=== PATIENT | male | born 1975 | race African-American/Black ===

== ENCOUNTER 2017-09-19 09:21 | Emergency (ER) | payer SELFPAY ==
[2017-09-19 10:02] LABS: #Eosinphils 0.1 thou/uL (0.0-0.7); #Lymphocytes 1.4 thou/uL (1.20-3.40); #Monocytes 0.3 thou/uL (0.11-0.59); #Neutrophils 3.5 thou/uL (1.40-6.50); %Basophils 0.7 % (0.0-1.0); %Eosinophils 1.7 % (0.0-10.0); %Lymphocytes 25.7 % (21.0-51.0); %Monocytes 6.5 % (0.0-10.0); %Neutrophils 65.4 % (42.0-75.0); Mean Corpuscular HGB CONC 32.3 g/dL (32.0-36.0); Mean Corpuscular Hemoglobin 28.4 pg (27.0-31.0); Mean Corpuscular Volume 87.8 fl (80.0-94.0); Mean Platelet Volume 7.4 fL (7.4-10.4); Platelet Count 353 thou/uL (130-400); RBC Distribution Width 13.2 % (11.5-14.5); White Blood Cell (WBC) Count 5.3 thou/uL (4.8-10.8)
--- NOTE | 2017-09-19 10:17 | RAD ---
AP VIEW OF CHEST: Date: 09/19/17 INDICATION: Chest pain. FINDINGS: No consolidation is evident. No pleural effusion or pneumothorax is evident. Heart size is accentuate d with exam technique. No acute osseous abnormality is noted. IMPRESSION: No acute cardiopulmonary abnormality. POS: H
[2017-09-19 10:21] LABS: ALT (SGPT) 12 U/L (8-55); AST (SGOT) 11 U/L (5-34); Albumin 3.8 g/dL (3.5-5.0); Alkaline Phosphatase 63 U/L (40-150); Anion Gap 12 mmol/L (10-20); BUN (Urea Nitrogen) 6 mg/dL (8.9-20.6); Bilirubin, Total 0.3 mg/dL (0.2-1.2); CK (CPK) 186 U/L (30-200); Calc. Creatinine Clearance 0 mL/min (70-130); Calcium 9.3 mg/dL (7.8-10.44); Carbon Dioxide 22 mmol/L (22-29); Chloride 108 mmol/L (98-107); Estimated GFR-MDRD Greater than 90; Globulin 3.6 g/dL (2.4-3.5); Glucose 108 mg/dL (70-105); Protein, Total 7.4 g/dL (6.0-8.3); Sodium 138 mmol/L (136-145)
[2017-09-19 10:25] LABS: CKMB 1.2 ng/mL (0-6.6); Troponin I 0.015 ng/mL (< 0.028)
[2017-09-19] MEDS ORDERED: Metoprolol Tartrate 50 MG TAB ONE (13:06)
[2017-09-19 13:20] LABS: Troponin I Less than 0.010 ng/mL (< 0.028)
== END 2017-09-19 14:40 ==
LOC: ERS 09:21
DX: R07.9 Chest pain, unspecified (principal); E78.5 Hyperlipidemia, unspecified; J45.909 Unspecified asthma, uncomplicated; E11.9 Type 2 diabetes mellitus without complications; I11.0 Hypertensive heart disease with heart failure; I50.9 Heart failure, unspecified; F31.9 Bipolar disorder, unspecified; F41.9 Anxiety disorder, unspecified; F17.210 Nicotine dependence, cigarettes, uncomplicated
CPT/HCPCS: 36415; 71045; 80053; 82553; 83880; 84484; 85025; 93005

== ENCOUNTER 2024-03-04 14:57 | Emergency (ER) | payer SELFPAY ==
[2024-03-04 15:59] LABS: #Basophils Less than 0.03 10x3/uL (0.0-0.2); %Basophils 0.1 % (0.0-1.0); %Eosinophils 3.3 % (0.0-10.0); %Monocytes 6.1 % (0.0-10.0); %Neutrophils 56.4 % (42.0-75.0); Hematocrit 40.2 % (42.0-52.0); Hemoglobin 12.9 g/dL (14.0-18.0); Mean Corpuscular HGB CONC 32.1 g/dL (32.0-36.0); Mean Corpuscular Hemoglobin 25.9 pg (27.0-31.0); Mean Corpuscular Volume 80.7 fL (78.0-98.0); Mean Platelet Volume 9.7 fL (7.4-10.4); Platelet Count 408 10x3/uL (130-400); RBC Distribution Width 16.4 % (11.5-14.5); Red Blood Cell (RBC) Count 4.98 mill/uL (4.70-6.10)
== END 2024-03-04 16:06 ==
LOC: ERS 14:57
DX: Z00.00 Encounter for general adult medical examination without abnormal findings (principal); F20.9 Schizophrenia, unspecified; I11.0 Hypertensive heart disease with heart failure; I50.9 Heart failure, unspecified; E11.9 Type 2 diabetes mellitus without complications; F17.210 Nicotine dependence, cigarettes, uncomplicated
CPT/HCPCS: 85025; 99282

== ENCOUNTER 2024-03-08 23:17 | Emergency (ER) | payer SELFPAY ==
[~2024-03-08 23:17] MED LIST: Iopamidol-370 76% 500 ML MDV (1 ML CHARGE) ONE
[2024-03-09 00:03] LABS: #Basophils Less than 0.03 10x3/uL (0.0-0.2); %Basophils 0.1 % (0.0-1.0); %Eosinophils 1.9 % (0.0-10.0); %Lymphocytes 15.7 % (21.0-51.0); %Monocytes 4.6 % (0.0-10.0); %Neutrophils 77.4 % (42.0-75.0); Hematocrit 39.2 % (42.0-52.0); Hemoglobin 12.9 g/dL (14.0-18.0); Mean Corpuscular HGB CONC 32.9 g/dL (32.0-36.0); Mean Corpuscular Hemoglobin 26.5 pg (27.0-31.0); Mean Corpuscular Volume 80.5 fL (78.0-98.0); Mean Platelet Volume 9.9 fL (7.4-10.4); Platelet Count 397 10x3/uL (130-400); RBC Distribution Width 16.1 % (11.5-14.5); Red Blood Cell (RBC) Count 4.87 mill/uL (4.70-6.10)
[2024-03-09 00:24] LABS: Acetaminophen Less than 10 mcg/mL (10.0-30.0); Alcohol Less than 10.0 mg/dL (Less than 10); Lipase 91 U/L (8-78); Salicylate Less than 8.0 mg/dL (15.0-30.0)
[2024-03-09 00:30] LABS: Troponin I Less than 0.010 ng/mL (< 0.028)
[2024-03-09 02:35] LABS: ALT (SGPT) 18 U/L (8-55); AST (SGOT) 24 U/L (5-34); Albumin 3.1 g/dL (3.5-5.0); Alkaline Phosphatase 63 U/L (40-110); Anion Gap 18 mmol/L (10-20); BUN (Urea Nitrogen) 11 mg/dL (8.9-20.6); Bilirubin, Total 0.3 mg/dL (0.2-1.2); CK (CPK) 123 U/L (30-200); Calc. Creatinine Clearance 0 mL/min (70-130); Calcium 9.2 mg/dL (7.8-10.44); Carbon Dioxide 17 mmol/L (22-29); Chloride 108 mmol/L (98-107); Estimated GFR 79; Globulin 5.4 g/dL (2.4-3.5); Glucose 145 mg/dL (70-105); Potassium 5.4 mmol/L (3.5-5.1); Protein, Total 8.5 g/dL (6.0-8.3); Sodium 138 mmol/L (136-145)
[2024-03-09] MEDS ORDERED: Ibuprofen 800 MG TAB ONE (04:04)
== END 2024-03-09 03:48 ==
LOC: EEVIPCON 23:17 → ERS 23:17
DX: R41.82 Altered mental status, unspecified (principal); E87.5 Hyperkalemia; E27.9 Disorder of adrenal gland, unspecified; E11.9 Type 2 diabetes mellitus without complications; E78.5 Hyperlipidemia, unspecified; I11.0 Hypertensive heart disease with heart failure; I50.9 Heart failure, unspecified; F17.210 Nicotine dependence, cigarettes, uncomplicated
CPT/HCPCS: 36415; 70450; 71045; 74177; 80053; 80307; 82550; 83605; 83690; 83735; 83880; 84443; 84484; 85025; 93005; 94760; Q9967